=== PATIENT | female | born 1965 | race Caucasian/White ===

== ENCOUNTER 2019-07-28 08:21 | Day surgery (SDC) | payer MEDICAID, OTHER ==
[2019-07-25 12:58] VITALS: BMI 21.4
[~2019-07-28 08:21] MED LIST: LACTATED RINGERS 1,000 ML IV SCH; LIDOCAINE 1% 20 ML VIAL (10MG/ML) FOR IV START INTRADERMA PRN
[2019-07-28 08:42] VITALS: TEMP 97.8
[2019-07-28] MEDS ORDERED: LACTATED RINGERS 1,000 ML IV ONE (08:43)
[2019-07-28] MEDS ORDERED: PROPOFOL 10 MG/ML 20 ML VIAL IV ONE (09:26)
--- NOTE | 2019-07-28 09:31 | P.GSHP ---
History of Present Illness H&P Date: 07/28/19 Chief Complaint: GI bleed Is a 53-year-old female with history of rectal bleeding. Patient's a known history external hemorrhoids. She's had complaints of intermittent rectal bleeding. Past Medical History Past Medical History: COPD Additional Past Medical History / Comment(s): POSSIBLE CO APR 2018. 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 HEMORRHOIDS-WITH BLEEDING AT TIMES. MIGRAINES History of Any Multi-Drug Resistant Organisms: MRSA Date of last positivie culture/infection: 2009 MDRO Source:: FACE Past Surgical History: Bladder Surgery, Hysterectomy, Joint Replacement Additional Past Surgical History / Comment(s): LAP EXAM. D & C FOR MISCARRIAGE. LT TKA. COLONOSCOPY Past Anesthesia/Blood Transfusion Reactions: Previous Problems w/ Anesthesia Additional Past Anesthesia/Blood Transfusion Reaction / Comment(s): SLOW TO WAKE UP Smoking Status: Current every day smoker - Past Family History Mother Family Medical History: Cancer Medications and Allergies Home Medications Medication Instructions Recorded Confirmed Type Albuterol Inhaler [Ventolin Hfa 1 - 2 puff INHALATION RT-Q6H PRN 07/25/1907/25 History Inhaler] Cetirizine HCl 10 mg PO DAILY 07/25/19 07/25/19 History Fluticasone Nasal [place] [Flonase 1 spray EA NOSTRIL DAILY 07/25/19 07/25/19 History Nasal [place]] Fluticasone/Salmeterol [Airduo 1 puff INHALATION Q12H 07/25/19 07/25/19 History Respiclick 113-14 Mcg] SUMAtriptan SUCCINATE [Imitrex] 100 mg PO DAILY PRN 07/25/19 07/25/19 History Topiramate [Topamax] 100 mg PO BID 07/25/19 07/25/19 History Verapamil [Isoptin] 80 mg PO TID 07/25/19 07/25/19 History Allergies Allergy/AdvReac Type Severity Reaction Status Date / Time metronidazole [From Flagyl] Allergy Nausea & Verified 07/25/19 12:40 Vomiting NSAIDS (Non-Steroidal AdvReac STATES Verified 07/25/19 12:40 Anti-Inflamma ONLY HAS ONE KIDNEY Surgical - Exam Vital Signs Temp Pulse Resp BP Pulse Ox 97.8 F 91 18 145/63 98 07/28/19 08:41 07/28/19 08:41 07/28/19 08:41 07/28/19 08:41 07/28/19 08:41 - General well developed, well nourished, no distress - Eyes PERRL - ENT normal pinna - Neck no masses - Respiratory normal expansion - Cardiovascular Rhythm: regular - Abdomen Abdomen: soft, non tender Assessment and Plan Assessment: GI bleed. We'll perform colonoscopy.
--- NOTE | 2019-07-28 09:46 | P.OP ---
Date of Procedure: 07/28/19 Preoperative Diagnosis: Rectal bleeding Postoperative Diagnosis: External hemorrhoids Procedure(s) Performed: Colonoscopy Anesthesia: MAC Surgeon: Yordy Lane Pathology: none sent Condition: stable Disposition: PACU Description of Procedure: Patient's placed on the endoscopy table in the lateral position. She received IV sedation. Digital rectal exam was performed which revealed external hemorrhoids. Flexible colonoscope was then placed patient anus and passed throughout the entire colon. The ileocecal valve was visualized. The cecum, ascending and transverse colon appeared normal. In the descending; there were no polyps or diverticula seen scope was then brought back the rectum and this appeared normal. Scope was withdrawn for patient and external hemorrhoids are noted.
[2019-07-28 10:02] VITALS: BP 131/77; PULSE 70; RESP 16
== END 2019-07-28 10:33 | disposition home or self-care (01) ==
LOC: ORWHC2ENDO 08:21
PROVIDERS: ATTEND Surgery
DX: K64.4 Residual hemorrhoidal skin tags (principal); J44.9 Chronic obstructive pulmonary disease, unspecified; Q60.0 Renal agenesis, unilateral; G43.909 Migraine, unspecified, not intractable, without status migrainosus; F39 Unspecified mood [affective] disorder; F17.200 Nicotine dependence, unspecified, uncomplicated; Z86.14 Personal history of Methicillin resistant Staphylococcus aureus infection; Z98.890 Other specified postprocedural states; Z90.710 Acquired absence of both cervix and uterus; Z96.652 Presence of left artificial knee joint; Z91.89 Other specified personal risk factors, not elsewhere classified; Z79.899 Other long term (current) drug therapy; Z88.1 Allergy status to other antibiotic agents; Z88.6 Allergy status to analgesic agent; Z80.9 Family history of malignant neoplasm, unspecified
CPT/HCPCS: 45378; J2704